=== PATIENT | female | born 1985 | race American Indian/Alaskan Native ===

== ENCOUNTER 2020-10-26 17:34 | Emergency (ER) | payer MEDICAID ==
[2020-10-26] MEDS ORDERED: methylPREDNISolone Sod Succinate 125 MG/2 ML INJ ONE (17:47)
[2020-10-26] MEDS ORDERED: MAGNESIUM SULFATE 2 GM/50 ML BAG IV ONE ×2 (17:48→17:49)
[2020-10-26] MEDS ORDERED: IPRATROPIUM 0.02% NEBU 2.5 ML IH ONE (17:48)
[2020-10-26] MEDS ORDERED: methylPREDNISolone Sod Succinate 125 MG/2 ML INJ IV ONE (17:48)
[2020-10-26] MEDS ORDERED: LEVALBUTEROL 0.63 MG/3 ML NEBU IH ONE (17:50)
--- NOTE | 2020-10-26 17:53 | Emergency Department Report ---
ED Asthma HPI - General Chief Complaint: Dyspnea/Respdistress Stated Complaint: LAURYN, COUGHING Time Seen by Provider: 10/26/20 17:48 Source: patient Mode of arrival: Ambulatory Limitations: No Limitations - History of Present Illness Initial Comments: Patient is 35 years old female with history of asthma. Patient presented to the ER complaining of shortness of breath and wheezing and difficulty breathing for the last few days. Patient stated the symptoms get worse in the last few days. Patient denied any fever or chills. No chest pain. Patient stated that she has been using her albuterol with no improvement. MD Complaint: "asthma attack", shortness of breath, wheezing -: days(s) Asthma History: childhood onset Context: recent URI Associated Symptoms: dry cough Treatments Prior to Arrival: inhaled bronchodilator - Related Data Current Asthma Therapy: inhaled bronchodilator Home Medications Medication Instructions Recorded Confirmed Last Taken Albuterol Sulfate [Proair 90 mcg IH QID PRN 10/26/20 10/26/20 Unknown Digihaler] Biktarvy 50-200-25 mg (Nf) 1 tab PO DAILY 10/26/20 10/26/20 Unknown Loratadine [Claritin] 10 mg PO DAILY 10/26/20 10/26/20 Unknown Allergies Allergy/AdvReac Type Severity Reaction Status Date / Time No Known Allergies Allergy Unverified 10/26/20 17:56 ED Review of Systems ROS: Stated complaint: LAURYN, COUGHING Other details as noted in HPI Comment: All other systems reviewed and negative Constitutional: denies: chills, fever Respiratory: cough, shortness of breath, SOB with exertion, wheezing Cardiovascular: dyspnea on exertion. denies: chest pain, palpitations Gastrointestinal: denies: abdominal pain, nausea, vomiting Musculoskeletal: denies: back pain Neurological: denies: headache, weakness ED Past Medical Hx - Medications Home Medications: Home Medications Medication Instructions Recorded Confirmed Last Taken Type Albuterol Sulfate [Proair 90 mcg IH QID PRN 10/26/20 10/26/20 Unknown History Digihaler] Biktarvy 50-200-25 mg (Nf) 1 tab PO DAILY 10/26/20 10/26/20 Unknown History Loratadine [Claritin] 10 mg PO DAILY 10/26/20 10/26/20 Unknown History ED Physical Exam - General Limitations: No Limitations General appearance: alert, in distress - Head Head exam: Present: atraumatic, normocephalic, normal inspection - Eye Eye exam: Present: normal appearance - ENT ENT exam: Present: normal exam, normal orophraynx, mucous membranes moist - Neck Neck exam: Present: normal inspection, full ROM. Absent: tenderness, meningismus - Respiratory Respiratory exam: Present: normal lung sounds bilaterally - Cardiovascular Cardiovascular Exam: Present: regular rate, normal rhythm, normal heart sounds - GI/Abdominal GI/Abdominal exam: Present: soft, normal bowel sounds. Absent: distended, tenderness, guarding, rebound, rigid, organomegaly, mass, bruit, pulsatile mass, hernia - Extremities Exam Extremities exam: Present: normal inspection, full ROM, normal capillary refill. Absent: tenderness - Back Exam Back exam: Present: normal inspection, full ROM. Absent: CVA tenderness (R), CVA tenderness (L) - Neurological Exam Neurological exam: Present: alert, oriented X3, CN II-XII intact - Psychiatric Psychiatric exam: Present: normal mood - Skin Skin exam: Present: warm, intact, normal color ED Course Vital Signs 10/26/20 10/26/20 10/26/20 17:58 18:07 18:11 Temperature 98.7 F Pulse Rate 105 H 104 H Pulse Rate [ Throughout] Respiratory 24 22 22 Rate Respiratory Rate [ Throughout] Blood Pressure 139/84 [Right] O2 Sat by Pulse 93 93 93 Oximetry 10/26/20 10/26/20 18:45 19:57 Temperature Pulse Rate 92 H Pulse Rate [ 89 Throughout] Respiratory 18 Rate Respiratory 22 Rate [ Throughout] Blood Pressure 112/70 [Right] O2 Sat by Pulse 95 Oximetry ED Medical Decision Making - Lab Data Result diagrams: 10/26/20 18:12 10/26/20 18:12 - Radiology Data Radiology results: report reviewed - Medical Decision Making Patient is 35 years old female with history of asthma. Patient presented to the ER complaining of shortness of breath and wheezing and difficulty breathing for the last few days. Patient stated the symptoms get worse in the last few days. Patient denied any fever or chills. No chest pain. Patient stated that she has been using her albuterol with no improvement. Patient received Xopenex, Atrovent, Solu-Medrol and magnesium sulfate and Robitussin-AC. Patient stated that she is feeling much better. Labs is unremarkable except for a leukocytosis. Chest x-ray shows suspected viral pneumonia. Patient given prescription for prednisone, Zithromax and Robitussin- AC and advised to follow-up with her primary care physician in the next 2 to 3 days and to return to the ER if she develop any new symptoms. Critical care attestation.: If time is entered above; I have spent that time in minutes in the direct care of this critically ill patient, excluding procedure time. ED Disposition Clinical Impression: Asthma exacerbation, Suspected COVID-19 virus infection Disposition: DC- TO HOME OR SELFCARE Is pt being admited?: No Condition: Stable Instructions: Asthma, Adult, Prevent the Spread of COVID-19 if You Are Sick - CDC, COVID-19 Frequently Asked Questions Referrals: PRIMARY CARE, [Primary Care Provider] - 3-5 Days
--- NOTE | 2020-10-26 18:41 | XRay Report ---
CHEST 1 VIEW INDICATION / CLINICAL INFORMATION: Dyspnea. COMPARISON: None available. FINDINGS: SUPPORT DEVICES: None. HEART / MEDIASTINUM: No significant abnormality. LUNGS / PLEURA: There is mild interstitial prominence bilaterally and diffusely. Overall appearance i s nonspecific. No pneumothorax. No pleural effusion or area of consolidation noted. ADDITIONAL FINDINGS: No significant additional findings. IMPRESSION: 1. Mild interstitial prominence bilaterally. Differential diagnosis includes mild interstitial pulmon loli edema versus possible viral pneumonia. Clinical correlation is recommended. Signer Name: Tamia Crenshaw MD Signed: 10/26/2020 6:36 PM Workstation Name: [id number]
[2020-10-26 18:50] LABS: Basophils # (Auto) 0.2 K/mm3 (0.0-0.1); Basophils % (Auto) 1.1 % (0.0-1.8); Eosinophils # (Auto) 0.7 K/mm3 (0.0-0.4); Eosinophils % (Auto) 4.8 % (0.0-4.3); Hematocrit 38.8 % (30.3-42.9); Hemoglobin 13.1 gm/dl (10.1-14.3); Lymphocytes # (Auto) 3.7 K/mm3 (1.2-5.4); Mean Corpuscular HGB Conc 34 % (30-34); Mean Corpuscular Volume 87 fl (79-97); Monocytes # (Auto) 0.9 K/mm3 (0.0-0.8); Monocytes % (Auto) 6.3 % (0.0-7.3); Platelet Count 221 K/mm3 (140-440); Red Blood Count 4.46 M/mm3 (3.65-5.03); Red Cell Distribution Width 13.7 % (13.2-15.2)
[2020-10-26 18:55] LABS: BUN/Creatinine Ratio 9; Blood Urea Nitrogen 8 mg/dL (7-17); Calcium 8.6 mg/dL (8.4-10.2); Hemolysis Index 11
[2020-10-26] MEDS ORDERED: guaiFENesin/CODEINE 100-10MG ORAL LIQD 5 ML PO ONE (19:10)
[2020-10-26 19:58] VITALS: BP 112/70
== END 2020-10-26 21:05 | disposition home or self-care (01) ==
LOC: ED 17:34
DX: J45.901 Unspecified asthma with (acute) exacerbation (principal); Z79.899 Other long term (current) drug therapy; Z20.822 Contact with and (suspected) exposure to COVID-19
CPT/HCPCS: 36415; 71045; 80048; 85025; 94640; 96365; 96375; 99284; J2930; J3475; 94644

== ENCOUNTER 2021-04-22 08:30 | Emergency (ER) | payer MEDICAID ==
[2021-04-22] MEDS ORDERED: predniSONE 20 MG TAB PO ONE (09:27)
[2021-04-22] MEDS ORDERED: IPRATROPIUM/ALBUTEROL SULFATE 3 ML AMPUL.NEB IH ONE (09:27)
--- NOTE | 2021-04-22 09:28 | Emergency Department Report ---
ED Asthma HPI - General Chief Complaint: Dyspnea/Respdistress Stated Complaint: ASTHMA SOB Time Seen by Provider: 04/22/21 09:06 Source: patient Mode of arrival: Ambulatory Limitations: No Limitations - History of Present Illness Initial Comments: 36 year female with pmhx of HIV, and asthma presents to ED with complaints of severe cough. She states her symptoms started 2 days ago. She states the cough has been productive and constant and is worse when she takes a deep breath. She states she feels like she cannot catch her breath when she is cough. Reports wheezing when she takes a deep breath and she reports chest tightness. She has an albuterol MDI, but she states that has not been working. She reports associated rhinorrhea nasal congestion and sneezing. She does admit to tobacco use but she states that she stopped smoking 2 weeks ago. She states that she has been compliant with her HIV medications. Her last viral load was undetectable. She is unsure of her last CD4 count. She states that she has never been admitted for her asthma in the past. She denies any fever or chills. Recent travel or ill contacts. She has not gotten any of the COVID 19 vaccines. MD Complaint: shortness of breath, wheezing, other (Cough) -: Gradual - Related Data Home Medications Medication Instructions Recorded Confirmed Last Taken Albuterol Sulfate [Proair 90 mcg IH QID PRN 10/26/20 04/22/21 Unknown Digihaler] Biktarvy 50-200-25 mg (Nf) 1 tab PO DAILY 10/26/20 04/22/21 04/21/21 Previous Rx's Medication Instructions Recorded Last Taken Type Albuterol Mdi (or & Nicu Only) 2 puff IH QID PRN #8.5 gram 04/22/21 Unknown Rx [ProAir HFA Inhaler] Loratadine [Claritin] 10 mg PO DAILY #30 04/22/21 Unknown Rx Promethazine /Codeine 5 ml PO Q6H PRN #120 udc 04/22/21 Unknown Rx [Phenergan/Codeine 6.25-10 mg/5 ml] predniSONE [Deltasone] 60 mg PO QDAY #12 tab 04/22/21 Unknown Rx Allergies Allergy/AdvReac Type Severity Reaction Status Date / Time No Known Allergies Allergy Unverified 04/21/21 17:56 ED Review of Systems ROS: Stated complaint: ASTHMA SOB Other details as noted in HPI Comment: All other systems reviewed and negative Constitutional: denies: chills, diaphoresis, fever, malaise, weakness Eyes: denies: eye pain, eye discharge, vision change ENT: congestion, other (rhinorrhea ). denies: ear pain, throat pain Respiratory: cough, shortness of breath, wheezing Cardiovascular: chest pain (chest tightness) Gastrointestinal: denies: abdominal pain, nausea, diarrhea Genitourinary: denies: urgency, dysuria, frequency, hematuria, discharge, abnormal menses, dyspareunia Musculoskeletal: denies: back pain, joint swelling, arthralgia Skin: denies: rash, lesions, change in color, change in hair/nails, pruritus Neurological: denies: headache, weakness, numbness, paresthesias, confusion, abnormal gait, vertigo Psychiatric: denies: anxiety, depression, auditory hallucinations, visual hallucinations, homicidal thoughts, suicidal thoughts Hematological/Lymphatic: denies: easy bleeding, easy bruising ED Past Medical Hx - Past Medical History Previous Medical History?: Yes Hx Asthma: Yes Hx HIV: Yes - Surgical History Past Surgical History?: No - Social History Smoking Status: Current Every Day Smoker Substance Use Type: None - Medications Home Medications: Home Medications Medication Instructions Recorded Confirmed Last Taken Type Albuterol Sulfate [Proair 90 mcg IH QID PRN 10/26/20 04/22/21 Unknown History Digihaler] Biktarvy 50-200-25 mg (Nf) 1 tab PO DAILY 10/26/20 04/22/21 04/21/21 History Albuterol Mdi (or & Nicu Only) 2 puff IH QID PRN #8.5 gram 04/22/21 Unknown Rx [ProAir HFA Inhaler] Loratadine [Claritin] 10 mg PO DAILY #30 04/22/21 Unknown Rx Promethazine /Codeine 5 ml PO Q6H PRN #120 udc 04/22/21 Unknown Rx [Phenergan/Codeine 6.25-10 mg/5 ml] predniSONE [Deltasone] 60 mg PO QDAY #12 tab 04/22/21 Unknown Rx ED Physical Exam - General Limitations: No Limitations General appearance: alert, anxious, in distress (pt with constant dry cough in room ), obese - Head Head exam: Present: atraumatic, normocephalic, normal inspection - Eye Eye exam: Present: normal appearance, PERRL, EOMI Pupils: Present: normal accommodation - Neck Neck exam: Present: normal inspection, full ROM. Absent: meningismus - Respiratory Respiratory exam: Present: wheezes (left upper lung sanchez, mild ), decreased breath sounds. Absent: respiratory distress - Cardiovascular Cardiovascular Exam: Present: regular rate, normal rhythm, normal heart sounds - Neurological Exam Neurological exam: Present: alert, oriented X3, CN II-XII intact, normal gait - Psychiatric Psychiatric exam: Present: anxious - Skin Skin exam: Present: intact ED Course Vital Signs 04/22/21 04/22/21 04/22/21 08:38 09:51 10:22 Temperature 98.3 F Pulse Rate 88 Pulse Rate [ 90 Anterior Bilateral Throughout] Respiratory 16 Rate Respiratory 15 Rate [Anterior Bilateral Throughout] Blood Pressure 148/108 [Left] O2 Sat by Pulse 99 96 Oximetry 04/22/21 11:51 Temperature 98.2 F Pulse Rate 62 Pulse Rate [ Anterior Bilateral Throughout] Respiratory 18 Rate Respiratory Rate [Anterior Bilateral Throughout] Blood Pressure 128/92 [Left] O2 Sat by Pulse 98 Oximetry ED Medical Decision Making - Lab Data Result diagrams: 04/22/21 10:33 04/22/21 10:33 - Radiology Data Radiology results: report reviewed Patient: SHINE DEY MR#: [id number] : 1985 Acct:[id number] Age/Sex: 36 / F ADM Date: 04/22/21 Loc: ED Attending Dr: Ordering Physician: WINTER NOEL Date of Service: 04/22/21 Procedure(s): XR chest 1V ap Accession Number(s): [id number] cc: WINTER NOEL Fluoro Time In Minutes: CHEST 1 VIEW 04/22/2021 9:38 AM INDICATION / CLINICAL INFORMATION: cough/asthma/hx hiv. COMPARISON: 10/26/2020 FINDINGS: SUPPORT DEVICES: None. HEART / MEDIASTINUM: No significant abnormality. LUNGS / PLEURA: Lung volumes are low but no focal airspace disease. Mild interstitial prominence. No large effusion or pneumothorax. No pneumothorax. ADDITIONAL FINDINGS: No significant additional findings. IMPRESSION: 1. Mild interstitial prominence is nonspecific but can be seen with mild pulmonary edema or bronchiolitis. Signer Name: Ok Neely MD Signed: 04/22/2021 10:06 AM Workstation Name: [id number] Transcribed By: MAISHA Dictated By: OK NEELY MD Electronically Authenticated By: OK NEELY MD Signed Date/Time: 04/22/21 1006 DD/ 1005 TD/TT: - Medical Decision Making 1252: Patient currently resting comfortably in beds. She reports improvement of her symptoms including her cough after nebs, cough meds and prednisone. Vital signs have been stable. She is currently not in any acute pain or respiratory distress and her coughing has significantly improved. Is currently not toxic or ill-appearing and appears hydrated. All labs reviewed and unremarkable. Chest x-ray IMPRESSION: 1. Mild interstitial prominence is nonspecific but can be seen with mild pulmonary edema or bronchiolitis. Suspect the symptoms likely related to asthmatic bronchitis. I have a very low suspicion for PE (PERC 0), STEMI/unstable angina, sepsis or any other emergent condition warranting any additional testing or admission at this time. Discussed all imaging results and chest x-ray results with patient. Discussed suspected diagnosis and treatment plan with patient. Recommend follow-up with PCP. Patient expressed understanding and agree with plan. Patient was stable at time of discharge. Critical care attestation.: If time is entered above; I have spent that time in minutes in the direct care of this critically ill patient, excluding procedure time. ED Disposition Clinical Impression: Acute asthmatic bronchitis Disposition: HOME / SELF CARE / HOMELESS Is pt being admited?: No Does the pt Need Aspirin: No Condition: Stable Instructions: Asthma Attack, Acute Bronchitis (ED) Additional Instructions: I recommend using the albuterol MDI every 4-6hrs. Take the prednisone, zyrtec and the medicine with codeine as prescribed. Follow-up closely with your PCP. Return to the ER if your symptoms worsens or changes in any way. Prescriptions: Loratadine [Claritin] 10 mg PO DAILY #30 predniSONE [Deltasone] 60 mg PO QDAY #12 tab Promethazine /Codeine [Phenergan/Codeine 6.25-10 mg/5 ml] 5 ml PO Q6H PRN #120 udc PRN Reason: cough Albuterol Mdi (or & Nicu Only) [ProAir HFA Inhaler] 2 puff IH QID PRN #8.5 gram PRN Reason: Shortness Of Breath Referrals: CLINIC,PDP [Other] - 3-5 Days Forms: Work/School Release Form(ED) Time of Disposition: 12:47
[2021-04-22] MEDS ORDERED: PROMETHAZINE/CODEINE 6.25-10 MG ORAL LIQD 5 ML PO ONE (10:00)
--- NOTE | 2021-04-22 10:11 | XRay Report ---
CHEST 1 VIEW 04/22/2021 9:38 AM INDICATION / CLINICAL INFORMATION: cough/asthma/hx hiv. COMPARISON: 10/26/2020 FINDINGS: SUPPORT DEVICES: None. HEART / MEDIASTINUM: No significant abnormality. LUNGS / PLEURA: Lung volumes are low but no focal airspace disease. Mild interstitial prominence. No large effusion or pneumothorax. No pneumothorax. ADDITIONAL FINDINGS: No significant additional findings. IMPRESSION: 1. Mild interstitial prominence is nonspecific but can be seen with mild pulmonary edema or bronchiol itis. Signer Name: Ok Neely MD Signed: 04/22/2021 10:06 AM Workstation Name: [id number]
[2021-04-22 11:20] LABS: Hematocrit 37.6 % (30.3-42.9); Hemoglobin 12.8 gm/dl (10.1-14.3); Mean Corpuscular HGB Conc 34 % (30-34); Mean Corpuscular Volume 87 fl (79-97); Platelet Count 116 K/mm3 (140-440); Red Blood Count 4.32 M/mm3 (3.65-5.03); Red Cell Distribution Width 14.1 % (13.2-15.2)
[2021-04-22 11:48] LABS: Alanine Aminotransferase 16 units/L (7-56); Albumin 3.8 g/dL (3.9-5); BUN/Creatinine Ratio 6; Blood Urea Nitrogen 5 mg/dL (7-17); Calcium 8.7 mg/dL (8.4-10.2); Hemolysis Index 13
[2021-04-22 11:52] VITALS: BP 128/92
== END 2021-04-22 12:59 | disposition home or self-care (01) ==
LOC: ED 08:30
DX: J45.909 Unspecified asthma, uncomplicated (principal); J20.9 Acute bronchitis, unspecified; F17.200 Nicotine dependence, unspecified, uncomplicated
CPT/HCPCS: 36415; 71045; 80053; 83880; 85027; 94640; 99284; J7512; 94644

== ENCOUNTER 2021-11-14 16:33 | Emergency (ER) | payer MEDICAID ==
[2021-11-14 18:04] VITALS: BP 151/105
[2021-11-14] MEDS ORDERED: methylPREDNISolone Sod Succinate 125 MG/2 ML INJ IM ONE (18:17)
[2021-11-14] MEDS ORDERED: ALBUTEROL 2.5 MG/3 ML NEBU IH ONE (18:17)
== END 2021-11-15 05:15 | disposition left against medical advice (07) ==
LOC: ED 16:33
DX: R05.9 Cough, unspecified (principal); R06.02 Shortness of breath; Z53.21 Procedure and treatment not carried out due to patient leaving prior to being seen by health care provider
CPT/HCPCS: J2930